=== PATIENT | male | born 2000 | race Caucasian/White ===

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

== ENCOUNTER 2021-07-25 02:10 | Outpatient (CLI) | payer OTHER | END 2021-07-25 02:11 | disposition EMS.NT | LOC: EMS 02:10 | DX: S00.81XA Abrasion of other part of head, initial encounter (principal); S00.91XA Abrasion of unspecified part of head, initial encounter; S40.219A Abrasion of unspecified shoulder, initial encounter; S50.812A Abrasion of left forearm, initial encounter; S50.811A Abrasion of right forearm, initial encounter; S09.90XA Unspecified injury of head, initial encounter; Y04.2XXA Assault by strike against or bumped into by another person, initial encounter; Y93.01 Activity, walking, marching and hiking ==

== ENCOUNTER 2021-07-26 18:17 | Emergency (ER) | payer OTHER ==
[2021-07-26 18:24] VITALS: BP 131/83
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
== END 2021-07-26 19:23 | disposition home or self-care (01) ==
LOC: ED 18:17
DX: S00.12XA Contusion of left eyelid and periocular area, initial encounter (principal); S00.11XA Contusion of right eyelid and periocular area, initial encounter; S00.33XA Contusion of nose, initial encounter; H11.32 Conjunctival hemorrhage, left eye; S20.419A Abrasion of unspecified back wall of thorax, initial encounter; S20.311A Abrasion of right front wall of thorax, initial encounter; S30.811A Abrasion of abdominal wall, initial encounter; S02.2XXA Fracture of nasal bones, initial encounter for closed fracture; Y04.8XXA Assault by other bodily force, initial encounter; F17.200 Nicotine dependence, unspecified, uncomplicated
CPT/HCPCS: 99282; 99284

== ENCOUNTER 2022-07-08 23:57 | Outpatient (CLI) | payer OTHER | END 2022-07-08 23:58 | disposition short-term general hospital (02) | LOC: EMS 23:57 | DX: S52.91XB Unspecified fracture of right forearm, initial encounter for open fracture type I or II (principal); S01.81XA Laceration without foreign body of other part of head, initial encounter; V48.5XXA Car driver injured in noncollision transport accident in traffic accident, initial encounter; Y92.414 Local residential or business street as the place of occurrence of the external cause; R45.851 Suicidal ideations; F10.90 Alcohol use, unspecified, uncomplicated | CPT/HCPCS: A0425; A0429 ==